=== PATIENT | male | born 1985 | race Caucasian/White ===

== ENCOUNTER 2023-07-11 06:58 | Emergency (ER) | payer OTHER ==
[~2023-07-11] VITALS: Ht 177.8 cm; Wt 94.3 kg
[2023-07-11] MEDS ORDERED: LAMICTAL XR100 MG PO (07:10)
[2023-07-11] MEDS ORDERED: PENICILLIN V P500 MG PO (07:38)
[2023-07-11] MEDS ORDERED: IBU800 MG PO (07:38)
[2023-07-11 07:55] VITALS: BP 132/98
== END 2023-07-11 07:55 | disposition home or self-care (01) ==
LOC: ED 06:58
DX: K02.9 Dental caries, unspecified (principal); Z79.899 Other long term (current) drug therapy
CPT/HCPCS: 99282